=== PATIENT | male | born 1990 | race Hispanic/Latino ===

== ENCOUNTER → 2020-05-23 | Outpatient (CLI) | payer OTHER ==
--- NOTE | 2020-05-23 10:27 | Diagnostic Imaging Report ---
MRI of the left ankle without contrast. History: Ankle pain. Sprain. Twisting injury. Sprain of the calcaneofibular ligament. Technique: Utilizing a high-field 1.5T magnet, the following sequences were acquired: PD FS in all 3 planes with additional axial PD. Comparison: None. Findings: Achilles tendon and plantar fascia: The Achilles tendon and plantar fascia are normal. Cartilage and bone: Negative for osteochondral lesion of the tibiotalar and subtalar joints. Negative for fracture, osteonecrosis, or dislocation. Focal bone marrow edema at the lateral talar dome, medial aspect of the talus and at the plantar lateral aspect of the cuboid bone is due to bone contusions. Medial ankle: Mild sprain of the deltoid ligament complex. The majority of fibers are intact. The medial flexor tendons are normal. There is a physiologic amount of fluid within the tendon sheath of FHL. Lateral ankle: High-grade tear of the anterior talofibular and calcaneofibular ligaments. The posterior talofibular ligaments are intact. There is adjacent soft tissue edema and fluid/synovitis at the anterior lateral gutter. The syndesmotic ligaments are intact. The peroneal tendons are normal. Anterior ankle: The anterior extensor tendons are normal. Other findings: Negative for joint effusion. Impression: High-grade tear of the anterior talofibular and calcaneofibular ligaments. The posterior talofibular ligaments are intact. There is adjacent soft tissue edema and fluid/synovitis at the anterior lateral gutter. Mild sprain of the deltoid ligament complex. The majority of fibers are intact. Focal bone marrow edema at the lateral talar dome, medial aspect of the talus and at the plantar lateral aspect of the cuboid bone is due to bone contusions. No cortical fracture is seen. Signed by: Dr. Marcos De La Paz M.D. on 05/23/2020 10:24 AM
== END ==
LOC: MRI 08:09
PROVIDERS: ATTEND Family Medicine
DX: S93.412A Sprain of calcaneofibular ligament of left ankle, initial encounter (principal); Y99.0 Civilian activity done for income or pay